=== PATIENT | female | born 1940 | race African-American/Black ===

== ENCOUNTER 2016-12-27 06:56 | Inpatient (IN) | payer MEDICARE, BC ==
[~2016-12-27] VITALS: Ht 160 cm; Wt 88.1 kg
[~2016-12-27 06:56] MED LIST: AMLO5TAB2 PO; ASPI325T4 PO; FOLI1TAB6 PO; FURO20TA3 PO; GABA-497 PO; HYDR-531 PO; INSLANTI SC; LISI-646 PO; LORA1TAB12 PO; METH2.5T3 PO; METO25TA62 PO; MIRT30TA3 PO; MORP30TA PO; NITR0.4D10 TD; NITR0.4S29 SL; NUTR-463 OR; OMEP20CA74 OR; POTA20TA53 PO; PRE1T GT; PRE5T PO; PRED10SO EACHEYE; TEMA15CA91 PO; TRAM50TA2 PO; [UNRECOGNIZED DRUG - CODE] EACHEYE
[2016-12-27] MEDS ORDERED: SODIUM CHLORIDE 0.9% 1,000 ML IV ONE (08:32)
[2016-12-27 09:21] LABS: INR 1.04 (0.9-1.15); Partial Thromboplastin Time 25.6 sec (22.64-33.71); Prothrombin Time 11.3 sec (9.37-12.3)
[2016-12-27 09:27] LABS: Urine Bilirubin Negative (Negative); Urine Blood Negative /uL (Negative); Urine Color PINK (Yellow); Urine Glucose Normal (Normal); Urine Ketone Negative (Negative); Urine Nitrite Negative (Negative); Urine RBC 1 /hpf (0 - 4); Urine Squamous Epithelial Cell FEW /hpf (<5); Urine Urobilinogen Normal (Negative); Urine pH 6.5 (5.0-8.0)
[2016-12-27 09:28] LABS: Albumin 2.8 g/dL (3.4-5.0); Alkaline Phosphatase 152 U/L (45-117); Anion Gap 6 (5-15); Aspartate Aminotransferase 18 U/L (15-37); BUN/Creatinine Ratio 25.3; Bilirubin, Total 0.7 mg/dL (0.2-1.0); Blood Urea Nitrogen 20 mg/dL (7-18); Calcium 8.9 mg/dL (8.5-10.1); Carbon Dioxide 28 mmol/L (21-32); Chloride 106 mmol/L (98-107); GFR African American 91 mL/min; GFR Non-African American 75 mL/min; Glucose 130 mg/dL (74-106); Magnesium 2.5 mg/dL (1.6-2.6); Potassium 4.5 mmol/L (3.5-5.1); Sodium 140 mmol/L (136-145); Total Protein 6.7 g/dL (6.4-8.2)
[2016-12-27 09:45] LABS: Basophils # (auto) 0 uL; Basophils % (auto) 0.3 % (0.0-2.0); Eosinophils # (auto) 0.1 uL; Eosinophils % (auto) 0.7 % (0.0-7.0); Lymphocytes % (auto) 8.8 % (10.0-50.0); Monocytes # (auto) 0.9 uL; Monocytes % (auto) 7.6 % (0.0-12.0); Neutrophils # (auto) 9.2 uL; Neutrophils % (auto) 82.6 % (37.0-80.0); White Blood Cell 11.2 10^3/uL (4.4-10.8)
[2016-12-27 09:46] LABS: Hematocrit 36.5 % (36.0-46.0); Hemoglobin 11.8 g/dL (12.2-16.2); Mean Corpuscular Hgb Conc. 32.4 g/dL (32.0-36.0); Mean Corpuscular Volume 89.4 fL (80.0-100.0); Red Cell Distribution Width 22.9 % (11.8-14.3)
[2016-12-27 09:47] LABS: Mean Platelet Volume 8.8 fL (6.9-10.8); Platelet Count (auto) 190 10^3/uL (140-450)
[2016-12-27] MEDS ORDERED: LEVOFLOXACIN 500MG 100 ML IV ONE (10:00)
[2016-12-27] MEDS ORDERED: cefTRIAXone 1GM/50ML D5W 50 ML IV ONE ×2 (10:00→10:15)
[2016-12-27] MEDS ORDERED: TEMAZEPAM 15 MG CAP PO PRN (10:15)
[2016-12-27] MEDS ORDERED: PROMETHAZINE HCL 25 MG/ML 1ML IV PRN (10:15)
[2016-12-27] MEDS ORDERED: NITROGLYCERIN 0.4 MG SL TAB SL PRN (10:15)
[2016-12-27] MEDS ORDERED: ACETAMINOPHEN 500 MG TAB PO PRN (10:15)
[2016-12-27] MEDS ORDERED: MORPHINE SULF INJ 2 MG/ML SYRINGE 1ML IV PRN (10:15)
[2016-12-27] MEDS ORDERED: DEXTROSE (50%) 50ML SYRG IV PRN (10:15)
[2016-12-27 10:17] LABS: B-Type Natriuretic Peptide 29.2 pg/mL (0-100); Temperature: 21.9 C (20.0-25.0)
[2016-12-27 10:21] LABS: Anisocytosis Slight; Large Platelets FEW
[2016-12-27 10:22] LABS: Platelet Estimate Adequa
[2016-12-27] MEDS: METOPROLOL TARTRATE 25 MG TAB PO SCH ×2 (10:30→21:53)
[2016-12-27] MEDS: amLODIPine BESYLATE 5 MG TAB PO SCH (10:30)
[2016-12-27] MEDS ORDERED: ASPirin 325 MG TAB PO ONE (10:30)
[2016-12-27] MEDS: FOLIC ACID 1 MG TAB PO SCH (10:38)
[2016-12-27 10:39] LABS: Amylase 26 U/L (25-115)
[2016-12-27] MEDS: predniSONE 5 MG TAB PO SCH (10:39)
[2016-12-27] MEDS: PANTOPRAZOLE 40 MG TAB PO SCH (10:41)
[2016-12-27] MEDS: HYDROcodone-ACET 10/325MG TAB PO PRN (10:48)
[2016-12-27] MEDS: ACCU-CHEK COMFORT CURVE STRIP VI SCH ×3 (12:09→21:53)
[2016-12-27] MEDS: InsuLIN REG 1unit/0.01ml Soln (100units/ml) SC SCH ×3 (12:09→21:53)
[2016-12-27] MEDS: MORPHINE SULF INJ 2 MG/ML SYRINGE 1ML IV PRN ×2 (13:34→22:44)
[2016-12-27 17:30] VITALS: BP 150/72
[2016-12-27 18:45] VITALS: BP 150/72
[2016-12-27 20:00] VITALS: BP 131/57
[2016-12-27] MEDS: INSULIN DETEMIR(LEVEMIR) 1unit/0.01ml Soln (100units/ml) SC SCH (21:53)
[2016-12-27] MEDS: MIRTAZAPINE 30 MG TAB PO SCH (21:53)
[2016-12-27] MEDS ORDERED: PATIENTS OWN MEDICATION (Metoprolol Succinate (Metoprolol Succinate Er) 12.5 MG) PO SCH (22:00)
[2016-12-27] MEDS ORDERED: INSULIN GLARGINE 42 UNIT SC SCH (22:00)
[2016-12-27] MEDS ORDERED: ATROPINE SULFATE EACHEYE SCH (22:00)
[2016-12-28] MEDS: MORPHINE SULF INJ 2 MG/ML SYRINGE 1ML IV PRN ×2 (03:23→08:20)
[2016-12-28 06:01] VITALS: BP 116/59
[2016-12-28 06:18] LABS: Basophils # (auto) 0 uL; Basophils % (auto) 0.3 % (0.0-2.0); Eosinophils # (auto) 0.1 uL; Eosinophils % (auto) 1.2 % (0.0-7.0); Hematocrit 36.3 % (36.0-46.0); Hemoglobin 11.7 g/dL (12.2-16.2); Lymphocytes % (auto) 16.9 % (10.0-50.0); Mean Corpuscular Hemoglobin 28.8 pg (28.0-32.0); Mean Corpuscular Hgb Conc. 32.1 g/dL (32.0-36.0); Mean Corpuscular Volume 89.8 fL (80.0-100.0); Mean Platelet Volume 8.8 fL (6.9-10.8); Monocytes % (auto) 8.2 % (0.0-12.0); Neutrophils # (auto) 8.7 uL; Neutrophils % (auto) 73.4 % (37.0-80.0); Nucleated Red Blood Cells % 0.1 %; Platelet Count (auto) 198 10^3/uL (140-450); White Blood Cell 11.8 10^3/uL (4.4-10.8)
[2016-12-28 06:39] LABS: Red Cell Distribution Width 23.4 % (11.8-14.3)
[2016-12-28] MEDS: ACCU-CHEK COMFORT CURVE STRIP VI SCH ×4 (06:46→22:15)
[2016-12-28] MEDS: InsuLIN REG 1unit/0.01ml Soln (100units/ml) SC SCH (06:46)
[2016-12-28] MEDS: cefTRIAXone 1GM/50ML D5W 50 ML IV SCH (08:20)
[2016-12-28 09:00] VITALS: BP 129/70
[2016-12-28] MEDS ORDERED: PATIENTS OWN MEDICATION (Folic Acid 1 MG) PO SCH ×2 (10:00)
[2016-12-28] MEDS ORDERED: OMEPRAZOLE 20MG/10ML ORAL SUSP PO SCH (10:00)
[2016-12-28] MEDS ORDERED: PATIENTS OWN MEDICATION OP SCH ×2 (10:00)
[2016-12-28] MEDS ORDERED: ASPIRIN 325 MG PO SCH (10:00)
[2016-12-28] MEDS: prednisoLONE ACETATE 1% OPTH SUSP 5ML EACHEYE SCH (10:00)
[2016-12-28] MEDS: FOLIC ACID 1 MG TAB PO SCH (10:00)
[2016-12-28] MEDS: INSULIN DETEMIR(LEVEMIR) 1unit/0.01ml Soln (100units/ml) SC SCH (10:00)
[2016-12-28] MEDS: GABAPENTIN 300 MG CAP PO SCH (10:01)
[2016-12-28] MEDS: ASPirin 325 MG TAB PO SCH (10:01)
[2016-12-28] MEDS: predniSONE 5 MG TAB PO SCH (10:01)
[2016-12-28] MEDS: amLODIPine BESYLATE 5 MG TAB PO SCH (10:02)
[2016-12-28] MEDS: LORazepam 0.5 MG TAB PO PRN (10:02)
[2016-12-28] MEDS: PANTOPRAZOLE 40 MG TAB PO SCH (10:02)
[2016-12-28] MEDS: METOPROLOL TARTRATE 25 MG TAB PO SCH ×2 (10:06→22:50)
[2016-12-28] MEDS ORDERED: MORPHINE SULF INJ 2 MG/ML SYRINGE 1ML IV ONE (10:15)
[2016-12-28 10:20] LABS: Anisocytosis Slight; Ovalocytes FEW; Platelet Estimate Adequate
[2016-12-28 13:00] VITALS: BP 132/76
[2016-12-28] MEDS: MORPHINE SULFATE 10 MG/ML INJ 1ML SDV IV PRN ×2 (15:26→22:11)
[2016-12-28 17:00] VITALS: BP 100/57
[2016-12-28] MEDS: HYDROcodone-ACET 10/325MG TAB PO PRN (18:58)
[2016-12-28 20:00] VITALS: BP 141/62
[2016-12-28 22:03] VITALS: BP 111/59
[2016-12-28] MEDS: MIRTAZAPINE 30 MG TAB PO SCH (22:15)
[2016-12-29 04:47] VITALS: BP 96/60
[2016-12-29] MEDS ORDERED: DOCU100T15 PO (05:30)
[2016-12-29] MEDS ORDERED: FURO20TA3 PO (05:30)
[2016-12-29] MEDS ORDERED: LISI-646 PO (05:30)
[2016-12-29] MEDS ORDERED: TEMA15CA PO (05:30)
[2016-12-29 06:29] VITALS: BP 104/55
[2016-12-29] MEDS: ACCU-CHEK COMFORT CURVE STRIP VI SCH ×4 (06:29→22:09)
[2016-12-29] MEDS ORDERED: InsuLIN REG 1unit/0.01ml Soln (100units/ml) SC SCH (07:00)
[2016-12-29] MEDS: HYDROcodone-ACET 10/325MG TAB PO PRN (07:01)
[2016-12-29 07:31] VITALS: BP 119/63
[2016-12-29] MEDS: MORPHINE SULFATE 10 MG/ML INJ 1ML SDV IV PRN (08:49)
[2016-12-29] MEDS: cefTRIAXone 1GM/50ML D5W 50 ML IV SCH (08:49)
[2016-12-29 09:23] LABS: Basophils # (auto) 0 uL; Basophils % (auto) 0.5 % (0.0-2.0); Eosinophils # (auto) 0.1 uL; Eosinophils % (auto) 1.1 % (0.0-7.0); Hemoglobin 11.4 g/dL (12.2-16.2); Lymphocytes % (auto) 22.4 % (10.0-50.0); Mean Corpuscular Hemoglobin 28.9 pg (28.0-32.0); Mean Corpuscular Hgb Conc. 32.5 g/dL (32.0-36.0); Mean Platelet Volume 9.2 fL (6.9-10.8); Monocytes # (auto) 0.5 uL; Monocytes % (auto) 6.1 % (0.0-12.0); Neutrophils # (auto) 6.3 uL; Neutrophils % (auto) 69.9 % (37.0-80.0); Nucleated Red Blood Cells % 0.1 %; Platelet Count (auto) 174 10^3/uL (140-450)
[2016-12-29 09:30] LABS: Red Cell Distribution Width 22.9 % (11.8-14.3)
[2016-12-29] MEDS: prednisoLONE ACETATE 1% OPTH SUSP 5ML EACHEYE SCH (10:00)
[2016-12-29] MEDS: ASPirin 325 MG TAB PO SCH (10:03)
[2016-12-29] MEDS: PANTOPRAZOLE 40 MG TAB PO SCH (10:03)
[2016-12-29] MEDS: FOLIC ACID 1 MG TAB PO SCH (10:03)
[2016-12-29] MEDS: GABAPENTIN 300 MG CAP PO SCH (10:04)
[2016-12-29] MEDS: amLODIPine BESYLATE 5 MG TAB PO SCH (10:04)
[2016-12-29] MEDS: predniSONE 5 MG TAB PO SCH (10:05)
[2016-12-29] MEDS: LORazepam 0.5 MG TAB PO PRN (10:05)
[2016-12-29] MEDS: METOPROLOL TARTRATE 25 MG TAB PO SCH ×2 (10:07→22:00)
[2016-12-29 10:25] LABS: Anisocytosis Slight; Platelet Estimate Adequate; Poikilocytosis Slight
[2016-12-29] MEDS: InsuLIN REG 1unit/0.01ml Soln (100units/ml) SC SCH ×3 (11:30→22:00)
[2016-12-29] MEDS: HYDROmorphone HCL 2 MG/ML VL IV PRN (12:26)
[2016-12-29 13:00] VITALS: BP 111/65
[2016-12-29 20:00] VITALS: BP 108/56
[2016-12-29 22:00] VITALS: BP 108/56
[2016-12-29] MEDS: MIRTAZAPINE 30 MG TAB PO SCH (22:09)
[2016-12-30 05:00] VITALS: BP 125/59
[2016-12-30] MEDS: ACCU-CHEK COMFORT CURVE STRIP VI SCH ×4 (05:54→22:01)
[2016-12-30] MEDS: InsuLIN REG 1unit/0.01ml Soln (100units/ml) SC SCH ×4 (05:54→22:01)
[2016-12-30 09:00] VITALS: BP 127/56
[2016-12-30] MEDS: HYDROmorphone HCL 2 MG/ML VL IV PRN ×3 (09:05→22:15)
[2016-12-30] MEDS: prednisoLONE ACETATE 1% OPTH SUSP 5ML EACHEYE SCH (09:06)
[2016-12-30] MEDS: cefTRIAXone 1GM/50ML D5W 50 ML IV SCH (09:06)
[2016-12-30] MEDS: ASPirin 325 MG TAB PO SCH (09:11)
[2016-12-30] MEDS: GABAPENTIN 300 MG CAP PO SCH (09:12)
[2016-12-30] MEDS: PANTOPRAZOLE 40 MG TAB PO SCH (09:12)
[2016-12-30] MEDS: FOLIC ACID 1 MG TAB PO SCH (09:12)
[2016-12-30] MEDS: METOPROLOL TARTRATE 25 MG TAB PO SCH ×2 (09:13→22:00)
[2016-12-30] MEDS: predniSONE 5 MG TAB PO SCH (09:13)
[2016-12-30] MEDS: amLODIPine BESYLATE 5 MG TAB PO SCH (09:13)
[2016-12-30] MEDS: LORazepam 0.5 MG TAB PO PRN (10:49)
[2016-12-30 17:00] VITALS: BP 112/60
[2016-12-30 17:32] VITALS: BP 106/59
[2016-12-30] MEDS: HYDROcodone-ACET 10/325MG TAB PO PRN (17:53)
[2016-12-30 22:00] VITALS: BP 105/65
[2016-12-30] MEDS: MIRTAZAPINE 30 MG TAB PO SCH (22:01)
[2016-12-31] MEDS: LORazepam 0.5 MG TAB PO PRN (02:24)
[2016-12-31] MEDS: HYDROcodone-ACET 10/325MG TAB PO PRN ×3 (02:24→16:00)
[2016-12-31 04:54] VITALS: BP 110/64
[2016-12-31] MEDS: InsuLIN REG 1unit/0.01ml Soln (100units/ml) SC SCH ×4 (06:41→21:52)
[2016-12-31] MEDS: ACCU-CHEK COMFORT CURVE STRIP VI SCH ×4 (06:41→21:52)
[2016-12-31 06:46] LABS: Basophils # (auto) 0 uL; Basophils % (auto) 0.2 % (0.0-2.0); Eosinophils # (auto) 0.2 uL; Eosinophils % (auto) 2.3 % (0.0-7.0); Hematocrit 32.5 % (36.0-46.0); Hemoglobin 10.7 g/dL (12.2-16.2); Lymphocytes % (auto) 28.2 % (10.0-50.0); Mean Corpuscular Hemoglobin 29.5 pg (28.0-32.0); Mean Corpuscular Hgb Conc. 32.9 g/dL (32.0-36.0); Mean Corpuscular Volume 89.8 fL (80.0-100.0); Mean Platelet Volume 9.7 fL (6.9-10.8); Monocytes # (auto) 0.5 uL; Monocytes % (auto) 7.6 % (0.0-12.0); Neutrophils # (auto) 4.3 uL; Neutrophils % (auto) 61.7 % (37.0-80.0); Nucleated Red Blood Cells % 0.1 %; Platelet Count (auto) 159 10^3/uL (140-450)
[2016-12-31 07:00] LABS: Red Cell Distribution Width 22.7 % (11.8-14.3)
[2016-12-31 07:03] LABS: BUN/Creatinine Ratio 18.4; Calcium 8.5 mg/dL (8.5-10.1); Potassium 3.5 mmol/L (3.5-5.1)
[2016-12-31] MEDS: cefTRIAXone 1GM/50ML D5W 50 ML IV SCH (08:56)
[2016-12-31 09:00] VITALS: BP 118/65
[2016-12-31] MEDS: ASPirin 325 MG TAB PO SCH (09:56)
[2016-12-31] MEDS: GABAPENTIN 300 MG CAP PO SCH (09:56)
[2016-12-31] MEDS: predniSONE 5 MG TAB PO SCH (09:57)
[2016-12-31] MEDS: FOLIC ACID 1 MG TAB PO SCH (09:57)
[2016-12-31] MEDS: METOPROLOL TARTRATE 25 MG TAB PO SCH ×2 (09:57→21:52)
[2016-12-31] MEDS: PANTOPRAZOLE 40 MG TAB PO SCH (09:57)
[2016-12-31] MEDS: amLODIPine BESYLATE 5 MG TAB PO SCH (09:58)
[2016-12-31 11:17] LABS: Anisocytosis Slight; Ovalocytes FEW; Platelet Estimate Adequate; Poikilocytosis Slight; Schistocytes FEW; Tear Drop Cells FEW
[2016-12-31] MEDS: prednisoLONE ACETATE 1% OPTH SUSP 5ML EACHEYE SCH (12:25)
[2016-12-31 14:37] VITALS: BP 110/61
[2016-12-31 17:32] VITALS: BP 110/65
[2016-12-31] MEDS: MIRTAZAPINE 30 MG TAB PO SCH (21:52)
[2017-01-01 04:13] VITALS: BP 102/57
[2017-01-01 04:21] VITALS: BP 114/70
[2017-01-01] MEDS: InsuLIN REG 1unit/0.01ml Soln (100units/ml) SC SCH ×2 (06:26→11:30)
[2017-01-01] MEDS: HYDROmorphone HCL 2 MG/ML VL IV PRN ×3 (06:27→16:29)
[2017-01-01] MEDS: ACCU-CHEK COMFORT CURVE STRIP VI SCH ×2 (06:27→16:28)
[2017-01-01 09:00] VITALS: BP 112/52
[2017-01-01] MEDS: prednisoLONE ACETATE 1% OPTH SUSP 5ML EACHEYE SCH (10:00)
[2017-01-01] MEDS: ASPirin 325 MG TAB PO SCH (11:14)
[2017-01-01] MEDS: amLODIPine BESYLATE 5 MG TAB PO SCH (11:15)
[2017-01-01] MEDS: predniSONE 5 MG TAB PO SCH (11:15)
[2017-01-01] MEDS: FOLIC ACID 1 MG TAB PO SCH (11:16)
[2017-01-01] MEDS: PANTOPRAZOLE 40 MG TAB PO SCH (11:16)
[2017-01-01] MEDS: GABAPENTIN 300 MG CAP PO SCH (11:16)
[2017-01-01] MEDS: METOPROLOL TARTRATE 25 MG TAB PO SCH (11:20)
[2017-01-01] MEDS: cefTRIAXone 1GM/50ML D5W 50 ML IV SCH (11:26)
[2017-01-01 14:10] VITALS: BP 110/64
== END 2017-01-01 18:00 | disposition home health service (06) | DRG 871 ==
LOC: EDBD 06:56 → ER 06:56 → EDUNIT# 06:56 → TELE 06:57 → TELE-WESTW 19:45
PROVIDERS: ADMIT Internal Medicine; ATTEND Internal Medicine
DX: A41.9 Sepsis, unspecified organism (principal); G93.41 Metabolic encephalopathy; L89.152 Pressure ulcer of sacral region, stage 2; I11.0 Hypertensive heart disease with heart failure; N39.0 Urinary tract infection, site not specified; I50.9 Heart failure, unspecified; G30.9 Alzheimer's disease, unspecified; E11.9 Type 2 diabetes mellitus without complications; J32.2 Chronic ethmoidal sinusitis; F02.80 Dementia in other diseases classified elsewhere, unspecified severity, without behavioral disturbance, psychotic disturbance, mood disturbance, and anxiety; J44.9 Chronic obstructive pulmonary disease, unspecified; F17.200 Nicotine dependence, unspecified, uncomplicated; I70.0 Atherosclerosis of aorta; M19.012 Primary osteoarthritis, left shoulder; I67.2 Cerebral atherosclerosis; Z51.5 Encounter for palliative care; Z82.3 Family history of stroke; Z82.49 Family history of ischemic heart disease and other diseases of the circulatory system; Z83.3 Family history of diabetes mellitus; Z88.1 Allergy status to other antibiotic agents
CPT/HCPCS: 36415; 70450; 71010; 80048; 80053; 81001; 82150; 82962; 83036; 83605; 83690; 83735; 83880; 84484; 85025; 85610; 85730; 87040; 87081; 87086; 87493; 93005; 94761; 95819; 96361; 96365; 96375; J0696; J1815

== ENCOUNTER 2017-01-02 09:24 | Observation (INO) | payer MEDICARE, BC ==
[~2017-01-02] VITALS: Ht 165.1 cm; Wt 63.5 kg
[~2017-01-02 09:24] MED LIST changes: +DOCU100T15 PO; -GABA-497 PO; -NITR0.4D10 TD; -NITR0.4S29 SL; -NUTR-463 OR; -POTA20TA53 PO; -PRE1T GT; +TEMA15CA PO; -TEMA15CA91 PO; -TRAM50TA2 PO
[2017-01-02] MEDS ORDERED: MORPHINE SULF INJ 2 MG/ML SYRINGE 1ML IV ONE (10:45)
[2017-01-02] MEDS ORDERED: ONDANSETRON HCL 4 MG/2 ML VIAL IV ONE (10:45)
[2017-01-02 11:01] LABS: Basophils # (auto) 0.1 uL; Basophils % (auto) 1.4 % (0.0-2.0); Eosinophils # (auto) 0.2 uL; Eosinophils % (auto) 3.4 % (0.0-7.0); Hematocrit 34.6 % (36.0-46.0); Hemoglobin 11.3 g/dL (12.2-16.2); Lymphocytes # (auto) 2.5 uL; Lymphocytes % (auto) 35.2 % (10.0-50.0); Mean Corpuscular Hgb Conc. 32.7 g/dL (32.0-36.0); Mean Corpuscular Volume 88.5 fL (80.0-100.0); Mean Platelet Volume 8.9 fL (6.9-10.8); Monocytes # (auto) 0.8 uL; Monocytes % (auto) 11.5 % (0.0-12.0); Neutrophils # (auto) 3.5 uL; Neutrophils % (auto) 48.5 % (37.0-80.0); Nucleated Red Blood Cells % 0.1 %; Platelet Count (auto) 177 10^3/uL (140-450); White Blood Cell 7.2 10^3/uL (4.4-10.8)
[2017-01-02 11:24] LABS: Red Cell Distribution Width 22.6 % (11.8-14.3)
[2017-01-02 11:25] LABS: Albumin 2.6 g/dL (3.4-5.0); Bilirubin, Total 0.8 mg/dL (0.2-1.0); Calcium 8.5 mg/dL (8.5-10.1); Potassium 3.4 mmol/L (3.5-5.1); Total Protein 6.2 g/dL (6.4-8.2)
[2017-01-02] MEDS ORDERED: AZITHROMYCIN 500MG/D5W 250ML 250 ML IV ONE (11:30)
[2017-01-02] MEDS ORDERED: cefTRIAXone 1GM/50ML D5W 50 ML IV ONE (11:30)
[2017-01-02 12:12] LABS: Anisocytosis Slight; Platelet Estimate Adequate; Tear Drop Cells FEW
[2017-01-02 12:13] LABS: Ovalocytes FEW
[2017-01-02 12:14] LABS: Schistocytes FEW
[2017-01-02 13:35] VITALS: BP 126/72
== END 2017-01-02 14:41 | disposition home or self-care (01) | DRG 70 ==
LOC: EDBD 09:24 → ER 09:24 → OVERFLOW 12:05 → ER 14:41
PROVIDERS: ADMIT Emergency Medicine; ATTEND Emergency Medicine
DX: G93.41 Metabolic encephalopathy (principal); J18.9 Pneumonia, unspecified organism; I11.0 Hypertensive heart disease with heart failure; I50.9 Heart failure, unspecified; J44.0 Chronic obstructive pulmonary disease with (acute) lower respiratory infection; E11.9 Type 2 diabetes mellitus without complications; F41.9 Anxiety disorder, unspecified; F32.9 Major depressive disorder, single episode, unspecified
CPT/HCPCS: 36415; 70450; 71010; 80053; 85025; 87040; 96365; 96366; 96367; 96375; 99285; G0378; J0456; J0696; J2270; J2405; J7030

== ENCOUNTER 2017-02-19 16:31 | Emergency (ER) | payer MEDICARE, BC ==
[~2017-02-19] VITALS: Ht 167.6 cm; Wt 79.4 kg
[~2017-02-19 16:31] MED LIST changes: +ASP81EC PO; -ASPI325T4 PO; +FLUC100T34 PO; +HAL1T PO; -HYDR-531 PO; -LORA1TAB12 PO; -MORP30TA PO; -PRE5T PO; -TEMA15CA PO
[2017-02-19] MEDS ORDERED: LIDOCAINE 1% HCL (LOCAL ANESTH.) INJ 20ML MDV ID ONE (18:15)
[2017-02-19] MEDS ORDERED: LEVOFLOXACIN 500MG 100 ML IV ONE (19:00)
[2017-02-19 20:00] VITALS: BP 98/58
[2017-02-19] MEDS ORDERED: SODIUM CHLOR 0.9% PF (SALINE LOCK) 10ML VIAL IV SCH (22:00)
== END 2017-02-19 22:30 | disposition home or self-care (01) ==
LOC: EDBD 16:31 → ER 16:31
DX: Z45.2 Encounter for adjustment and management of vascular access device (principal); I11.0 Hypertensive heart disease with heart failure; I50.9 Heart failure, unspecified; J44.9 Chronic obstructive pulmonary disease, unspecified; E11.9 Type 2 diabetes mellitus without complications; K21.9 Gastro-esophageal reflux disease without esophagitis; F03.90 Unspecified dementia, unspecified severity, without behavioral disturbance, psychotic disturbance, mood disturbance, and anxiety; Z79.4 Long term (current) use of insulin; Z79.82 Long term (current) use of aspirin; Z88.1 Allergy status to other antibiotic agents; Z87.891 Personal history of nicotine dependence
CPT/HCPCS: 36569; 71010; 96365; 99284; C1751; J1956; J7030; J7050